=== PATIENT | female | born 2005 ===

== ENCOUNTER 2024-12-05 08:03 | Outpatient (REF) | payer SELFPAY ==
--- OUTSIDE RECORDS SUMMARY | 2024-12-05 08:12 | XMS_ITS | Clinical Summary ---
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 1 each 5 09/24/2022 Active Active Problems No known active problems Family History Medical History Relation Name Comments Ovarian cysts Maternal Grandmother Ovarian cysts Mother Relation Name Status Comments Maternal Grandmother Mother Social History Tobacco Use Types Packs/Day Years Used Date Smoking Tobacco: Never Smokeless Tobacco: Never Tobacco Cessation:Counseling Given: Not Answered Alcohol Use Standard Drinks/Week Comments Yes 0 (1 standard drink = 0.6 oz pur e alcohol) Comments No Sex and Gender Information Value Date Recorded Sex Assigned at Not on file Legal Sex Female 2:49 PM EST Gender Identity Not on file Sexual Orientation Not on file Last Filed Vital Signs Vital Sign Reading Time Taken Comments Blood Pressure 104/68 02/28/2023 7:30 PM EDT Pulse 97 02/28/2023 7:30 PM EDT Temperature 36.9 ??C (98.5 ??F) 02/28/2023 7:30 PM ED T Respiratory Rate 16 02/28/2023 7:30 PM EDT Oxygen Saturation 98% 02/28/2023 7:30 PM EDT Inhaled Oxygen Concentration - - Weight 54.4 kg (120 lb) 02/28/2023 7:30 PM EDT Height 162.6 cm (5' 4 ) 02/28/2023 7:30 PM EDT Body Mass Index 20.6 02/28/2023 7:30 PM EDT Plan of Treatment Health Maintenance Due Date Last Done Comments HIV Screen 2003 Hepatitis C Screening 2003 Preventative Care Visit (18-39 y.o.) 2003 Tetanus 2003 Depression Screen* 2015 Suicide Screen 2015 HPV Vaccine (1 - 3-dose series) 2018 Mening B (1 of 2 - Risk Bexsero 2-Dose) 2019 Social Drivers of Health 2021 Hepatitis B Vaccine (1 of 3 - 19+ 3-dose series) 10/01 Chlamydia Screen 10/19/2023 10/19/2022 Influenza Vaccine* (#1) 05/04/2024 COVID-19 Vaccine ( season) 2024 Cervical Cancer Screen 2024 RSV Vaccine (1 - 1-dose 75+ series) 2078 Procedures Procedure Name Priority Date/Time Associated Diagnosis Comments CHLAMYDIA DNA PROBE Routine 10/19/2022 4 :39 PM EST Routine screening for STI (sexually transmitted infection) from Last 3 Months or Most Recently Relevant to Health Maintenance Results * CHLAMYDIA DNA PROBE (10/19/2022 4:39 PM EST) Chlamydia trachomatis Amplified DNA Not Detected Not Detected 10/20/2022 1:12 PM EST [facility] Comment: ? Method: Chucking Machine Operator Mediated Amplification Specimen Description Urine 10/20/2022 1:07 AM EST [facility] Urine Specimen / Unknown 4:39 PM EST 10/20/2022 1:07 AM EST us Chloé Mcnulty PA-C MICROBIOLOGY GENERAL ORDERA BLES Final Result [facility] [address] [place] [id number] from Last 3 Months or Most Recently Relevant to Health Maintenance Insurance [employer] OUT OF STATE
== END 2024-12-05 08:04 | disposition home or self-care (01) ==
LOC: HO.UMASIMG 08:03
PROVIDERS: Visit Provider Family Medicine
DX: Z13.89 Encounter for screening for other disorder (principal)